=== PATIENT | female | born 1990 | race Caucasian/White ===

== ENCOUNTER 2018-08-07 08:14 | Emergency (ER) | payer BC, OTHER ==
[2018-08-07 09:10] LABS: HCG,QUALITATIVE URINE NEGATIVE (NEGATIVE)
[2018-08-07 09:30] LABS: SQUAMOUS EPITHIAL 31 /hpf (0-5); URINE BACTERIA OCC (<OCC); URINE BILIRUBIN NEGATIVE (NEGATIVE); URINE BLOOD NEGATIVE (NEGATIVE); URINE CLARITY Hazy (Clear); URINE COLOR Yellow (YELLOW); URINE GLUCOSE (UA) NORMAL (Normal); URINE LEUKOCYTE ESTERASE 3+ Leu/uL (Negative); URINE PROTEIN NEGATIVE (NEGATIVE); URINE UROBILINOGEN NORMAL mg/dL (0.2-1.0)
--- NOTE | 2018-08-07 11:02 | C.PDOC ---
History Of Present Illness 28 y/o female presents to the ED complaining of upper abdominal pain associated with nausea and vomiting for 3 days. Patient reports having similar episodes of abdominal pain in the past since I was little but it usually resolves within a day or so. She reports pain has been constant for the past 3 days, and is described as a nagging pain. Denies cramping. No associated fevers, chills, or diarrhea. 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 Time Seen by Provider: 08/07/18 08:44 Chief Complaint (Nursing): Abdominal Pain History Per: Patient History/Exam Limitations: no limitations Onset/Duration Of Symptoms: Days (x3) Current Symptoms Are (Timing): Still Present Location Of Pain/Discomfort: RUQ, Epigastric, LUQ Quality Of Discomfort: Dull, "Pain" Associated Symptoms: Vomiting Past Medical History Reviewed: Historical Data, Nursing Documentation, Vital Signs Vital Signs: Last Vital Signs Temp 98.2 F 08/07/18 08:20 Pulse 95 H 08/07/18 08:20 Resp 18 08/07/18 08:20 BP 117/73 08/07/18 08:20 Pulse Ox 98 08/07/18 08:20 - Medical History PMH: Asthma, Hypothyroidism Family History: States: Unknown Family Hx - Social History Hx Alcohol Use: No Hx Substance Use: No - Immunization History Hx Tetanus Toxoid Vaccination: Yes Hx Influenza Vaccination: No Hx Pneumococcal Vaccination: No Review Of Systems Constitutional: Negative for: Fever, Chills Cardiovascular: Negative for: Palpitations Respiratory: Negative for: Shortness of Breath Gastrointestinal: Positive for: Nausea, Vomiting, Abdominal Pain. Negative for: Diarrhea, Hematochezia Genitourinary: Negative for: Dysuria, Frequency, Hematuria, Vaginal Bleeding Neurological: Negative for: Weakness, Dizziness Physical Exam - Physical Exam Appears: Non-toxic, No Acute Distress Skin: Normal Color, Warm, Dry Head: Atraumatic, Normacephalic Eye(s): bilateral: Normal Inspection, PERRL, EOMI Oral Mucosa: Moist Neck: Normal ROM Chest: Symmetrical Cardiovascular: Rhythm Regular, No Murmur Respiratory: Normal Breath Sounds, No Accessory Muscle Use, Other (No respiratory distress) Gastrointestinal/Abdominal: Soft, No Tenderness, No Guarding, No Rebound Back: Normal Inspection, No CVA Tenderness Extremity: Bilateral: Atraumatic, Normal ROM Neurological/Psych: Oriented x3, Normal Speech ED Course And Treatment - Laboratory Results Result Diagrams: 08/07/18 11:51 08/07/18 11:51 Lab Results: Urine Color Yellow (YELLOW) 08/07/18 08:57 Urine Clarity Hazy (Clear) 08/07/18 08:57 Urine pH 6.0 (5.0-8.0) 08/07/18 08:57 Ur Specific [place] 1.018 (1.003-1.030) 08/07/18 08:57 Urine Protein Negative mg/dL (NEGATIVE) 08/07/18 08:57 Urine Glucose (UA) Normal mg/dL (Normal) 08/07/18 08:57 Urine Ketones Negative mg/dL (NEGATIVE) 08/07/18 08:57 Urine Blood Negative (NEGATIVE) 08/07/18 08:57 Urine Nitrate Negative (NEGATIVE) 08/07/18 08:57 Urine Bilirubin Negative (NEGATIVE) 08/07/18 08:57 Urine Urobilinogen Normal mg/dL (0.2-1.0) 08/07/18 08:57 Ur Leukocyte Esterase 3+ Akshat/uL (Negative) H 08/07/18 08:57 Urine WBC (Auto) 8 /hpf (0-5) H 08/07/18 08:57 Urine RBC (Auto) 3 /hpf (0-3) 08/07/18 08:57 Ur Squamous Epith Cells 31 /hpf (0-5) H 08/07/18 08:57 Urine Bacteria Occ (<OCC) H 08/07/18 08:57 Urine HCG, Qual Negative (NEGATIVE) 08/07/18 08:57 Urine HCG, Qual Negative (NEGATIVE) 08/07/18 08:57 O2 Sat by Pulse Oximetry: 98 (RA) Pulse Ox Interpretation: Normal - CT Scan/US Abdominal US Other Rad Studies (CT/US): Read By Radiologist, Radiology Report Reviewed CT/US Interpretation: Accession No. : [id number]. Patient Name / ID : GABI YEE / [id number]. Exam Date : 08/07/2018 11:48:03 ( Approved ). Study Comment : Sex / Age : F / 28Y. Creator : Connie Garcia MD. Dictator : Connie Garcia MD. Network Lead : Sawmill Manager : Connie Garcia MD. Approver2 : Report Date : 08/07/2018 12:19:02. My Comment : . Date of service: 08/07/2018. HISTORY: epigastric pain. COMPARISON: None available. TECHNIQUE: Sonographic evaluation of the right upper quadrant of the abdomen. FINDINGS: LIVER: Measures 14.1 cm in length. Normal echogenicity of the liver parenchyma. No focal hepatic mass identified. The main portal vein appears patent with normal directional flow. No intrahepatic bile duct dilatation. GALLBLADDER: Gallstones. No gallbladder wall thickening or pericholecystic edema. Negative sonographic Pickard's sign as assessed by the solution specialist. COMMON BILE DUCT: Measures 4 mm. PANCREAS: Not well-visualized. RIGHT KIDNEY: Measures approximately 11.2 x 3.8 x 5.1 cm. No obstructing calculus or hydronephrosis identified. AORTA: Limited visualization appears grossly unremarkable. IVC: Limited visualization appears grossly unremarkable. OTHER FINDINGS: None . IMPRESSION: Cholelithiasis. Contracted gallbladder state. Negative sonographic Pickard's sign as assessed by the solution specialist. Correlate clinically. Progress Note: Blood work and urine sent to the lab. Administered IV fluids, 40mg IV Protonix, and 4 mg IV Zofran. Will obtain Abdominal US to r/o chol ecystitis. Labs reviewed. Ultrasound shows cholelithiasis, negative Pickard's sign. Results discussed with patient. On re-evaluation w9nyiest feels better and is stable to be d/c home wi9th PMD follow up. Disposition - Disposition Disposition: HOME/ ROUTINE Disposition Time: 13:28 Condition: STABLE Additional Instructions: Follow up with PMD within 1-2 days. Return to ED if feel worse. Prescriptions: Nitrofurantoin Macrocrystals [Macrobid] 1 cap PO BID #14 cap Naproxen [Naprosyn] 1 tab PO BID PRN #25 tab PRN Reason: Pain Instructions: Urinary Tract Infections in Adults, Gallstones (DC) Forms: [facility] (Kazakh), Work Excuse - Clinical Impression Clinical Impression: Cholelithiasis, UTI (urinary tract infection) - PA / SENIOR HADOOP DEVELOPER / Resident Statement MD/DO has reviewed & agrees with the documentation as recorded. - Scribe Statement The provider has reviewed the documentation as recorded by the Scribe Shala Charles All medical record entries made by the Scribe were at my direction and personally dictated by me. I have reviewed the chart and agree that the record accurately reflects my personal performance of the history, physical exam, medical decision making, and the department course for this patient. I have also personally directed, reviewed, and agree with the discharge instructions and disposition.
[2018-08-07] MEDS ORDERED: Sodium Chloride 0.9% 1,000 ML IV STA (11:20)
[2018-08-07 12:03] LABS: BASO % 0.6 % (0.0-2.0); EOS % 0.4 % (0.0-4.0); HEMOGLOBIN 14.9 g/dL (11.0-16.0); LYMPH # 1.3 K/uL (1.0-4.3); LYMPH % 16.9 % (20.0-40.0); MEAN CELL VOLUME 91.4 fL (81.0-99.0); MEAN CORPUSCULAR HEMOGLOBIN 31.1 pg (27.0-31.0); MEAN PLATELET VOLUME 9.3 fL (7.2-11.7); MONO # 0.4 K/uL (0.0-0.8); MONO % 5.6 % (0.0-10.0); NEUT % 76.5 % (50.0-75.0); RBC 4.8 Mil/uL (3.80-5.20); RED CELL DISTRIBUTION WIDTH 13.4 % (11.5-14.5); WHITE BLOOD COUNT 7.8 K/uL (4.8-10.8)
[2018-08-07] MEDS ORDERED: Sodium Chloride 0.9% 1,000 ML ONE (12:06)
[2018-08-07 12:16] LABS: ALB/GLOB RATIO 1.4 (1.0-2.1); ALBUMIN 4.8 g/dL (3.5-5.0); ALT/SGPT 41 U/L (9-52); AST/SGOT 39 U/L (14-36); BLOOD UREA NITROGEN 11 mg/dL (7-17); CALCIUM 9.1 mg/dl (8.6-10.4); GFR NON-AFRICAN AMERICAN > 60; LIPASE 83 U/L (23-300)
--- NOTE | 2018-08-07 12:22 | US ---
Date of service: 08/07/2018 HISTORY: epigastric pain COMPARISON: None available TECHNIQUE: Sonographic evaluation of the right upper quadrant of the abdomen. FINDINGS: LIVER: Measures 14.1 cm in length. Normal echogenicity of the liver parenchyma. No focal hepatic mass identified. The main portal vein appears patent with normal directional flow. No intrahepatic bile duct dilatation. GALLBLADDER: Gallstones. No gallbladder wall thickening or pericholecystic edema. Negative sonographic Pickard's sign as assessed by the cloth printing inspector. COMMON BILE DUCT: Measures 4 mm. PANCREAS: Not well-visualized. RIGHT KIDNEY: Measures approximately 11.2 x 3.8 x 5.1 cm. No obstructing calculus or hydronephrosis identified. AORTA: Limited visualization appears grossly unremarkable. IVC: Limited visualization appears grossly unremarkable. OTHER FINDINGS: None . IMPRESSION: Cholelithiasis. Contracted gallbladder state. Negative sonographic Pickard's sign as assessed by the cloth printing inspector. Correlate clinically.
[2018-08-07 13:22] VITALS: BP 102/67; PULSE 86; RESP 20; TEMP 98.5
[2018-08-07 13:28] VITALS: O2SAT 98
== END 2018-08-07 14:08 | disposition home or self-care (01) ==
LOC: C.ER 08:14
DX: K80.20 Calculus of gallbladder without cholecystitis without obstruction (principal); N39.0 Urinary tract infection, site not specified
CPT/HCPCS: 76705; 80053; 81001; 83690; 84703; 85025; 96361; 96374; 96375; 99285; C9113; J2405; J7030